=== PATIENT | female | born 1960 | race Caucasian/White ===

== ENCOUNTER 2017-11-25 09:18 | Day surgery (SDC) | payer BC ==
[~2017-11-25] VITALS: Ht 172.7 cm; Wt 74.4 kg
[~2017-11-25 09:18] MED LIST: ALEVE220 M1 PO
== END 2017-11-25 11:02 | disposition home or self-care (01) ==
LOC: DSVR 09:18 → OPS 09:18 → DS 10:00 → OPS 10:00 → DS 10:15 → OPS 11:02
PROVIDERS: Ophthalmology
PROC: 08RK3JZ Replacement of Left Lens with Synthetic Substitute, Percutaneous Approach (ICD-10-PCS; principal; 2017-11-25 10:00)
DX: H40.1121 Primary open-angle glaucoma, left eye, mild stage (principal); H25.812 Combined forms of age-related cataract, left eye; M19.90 Unspecified osteoarthritis, unspecified site; E78.00 Pure hypercholesterolemia, unspecified; Z98.890 Other specified postprocedural states; Z88.2 Allergy status to sulfonamides; Z88.8 Allergy status to other drugs, medicaments and biological substances; Z79.899 Other long term (current) drug therapy
CPT/HCPCS: 140